=== PATIENT | female | born 1985 | race American Indian/Alaskan Native ===

== ENCOUNTER 2021-04-19 14:27 | Emergency (ER) | payer MEDICAID ==
[2021-04-19 15:14] VITALS: BP 117/77
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
--- NOTE | 2021-04-19 15:58 | XRay Report ---
CHEST 2 VIEWS INDICATION: chest pain. COMPARISON: 08/31/2020 FINDINGS: Support devices: None. Heart: Within normal limits. Lungs/pleura: No acute air space or interstitial disease. No pneumothorax. Additional findings: None. IMPRESSION: No acute findings. Signer Name: Kwan Glover Jr, MD Signed: 04/19/2021 3:53 PM Workstation Name: [id number]
--- NOTE | 2021-04-20 10:54 | Electrocardiograph Report ---
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
== END 2021-04-19 16:46 | disposition home or self-care (01) ==
LOC: ED 14:27
DX: R07.89 Other chest pain (principal); J45.909 Unspecified asthma, uncomplicated; F17.200 Nicotine dependence, unspecified, uncomplicated; Z98.890 Other specified postprocedural states; Z79.899 Other long term (current) drug therapy
CPT/HCPCS: 71046; 93005

== ENCOUNTER 2021-07-03 08:54 | Emergency (ER) | payer MEDICAID ==
[2021-07-03 09:09] VITALS: BP 120/75
--- NOTE | 2021-07-03 11:19 | Emergency Department Report ---
ED General Adult HPI - General Chief complaint: Nausea/Vomiting/Diarrhea Stated complaint: BODYACHES Time Seen by Provider: 07/03/21 11:06 Source: patient Mode of arrival: Ambulatory Limitations: No Limitations - History of Present Illness Initial comments: 35 year old female who reports history of seasonal allergies history presents to ED with multiple complaints. Patient states that for 1 week she has been having this rash which has been coming and going. She states that it looks like red lines that appear on her body that looks kind of like scratches. She states that is not pruritic or painful. She states that they appear in random areas on her body and then disappear. She denies any new soaps, new medications, lotions, any insect bites or any other new contacts. She also reports associated headache, generalized fatigue, lower back pain and mucus in the stools in the past week. She also complained that she has been having left uppe r abdominal pain but this has been going on for over 1 month. Has been intermittent. She denies any melena or hematochezia. She reports nausea but no vomiting. She denies any fever or chills. She denies any URI symptoms or cough. She denies any UTI symptoms or any abnormal vaginal symptoms. She states that she is concerned that she may have a parasite. She states that she did get the [employer] COVID-19 vaccine in April. She states that she is a social drinker, and she denies any illicit drug use. Complaint: Rash/upper abd pain/mucous in stool/MERCADO/Fatigue -: week(s) (1) - Related Data Previous Rx's Medication Instructions Recorded Last Taken Type Naproxen 500 mg PO BID #20 tablet 04/19/21 Unknown Rx Ondansetron [Zofran Odt] 4 mg PO Q8HR #15 tab.rapdis 07/03/21 Unknown Rx Allergies Allergy/AdvReac Type Severity Reaction Status Date / Time No Known Allergies Allergy Unverified 04/19/21 14:59 ED Review of Systems ROS: Stated complaint: BODYACHES Other details as noted in HPI Comment: All other systems reviewed and negative Constitutional: malaise. denies: chills, fever Eyes: denies: eye pain, eye discharge, vision change ENT: denies: ear pain, throat pain, dental pain, hearing loss, epistaxis, co ngestion Respiratory: no symptoms reported. denies: cough, orthopnea, shortness of breath, SOB with exertion, SOB at rest, wheezing Cardiovascular: denies: chest pain, palpitations, dyspnea on exertion, orthopnea, edema, syncope, paroxysmal nocturnal dyspnea Gastrointestinal: abdominal pain, nausea. denies: vomiting, diarrhea, constipation, hematemesis, melena, hematochezia Genitourinary: denies: urgency, dysuria, discharge, abnormal menses, dyspareunia Musculoskeletal: back pain. denies: joint swelling, arthralgia, myalgia Skin: denies: rash, lesions, change in color, change in hair/nails Neurological: headache. denies: weakness, numbness, paresthesias, confusion, abnormal gait Psychiatric: denies: anxiety, depression, auditory hallucinations, visual hallucinations, homicidal thoughts, suicidal thoughts Hematological/Lymphatic: denies: easy bleeding, easy bruising, swollen glands ED Past Medical Hx - Past Medical History Previous Medical History?: Yes Hx Asthma: Yes - Surgical History Past Surgical History?: Yes Additional Surgical History: ectopic - Social History Smoking Status: Current Every Day Smoker - Medications Home Medications: Home Medications Medication Instructions Recorded Confirmed Last Taken Type Naproxen 500 mg PO BID #20 tablet 04/19/21 Unknown Rx Ondansetron [Zofran Odt] 4 mg PO Q8HR #15 tab.rapdis 07/03/21 Unknown Rx ED Physical Exam - General Limitations: No Limitations General appearance: alert, in no apparent distress - Head Head exam: Present: atraumatic, normocephalic, normal inspection - Eye Eye exam: Present: normal appearance, PERRL, EOMI Pupils: Present: normal accommodation - ENT ENT exam: Present: normal exam, mucous membranes moist - Neck Neck exam: Present: normal inspection, full ROM - Respiratory Respiratory exam: Present: normal lung sounds bilaterally. Absent: respiratory distress, wheezes, rales, rhonchi - Cardiovascular Cardiovascular Exam: Present: regular rate, normal rhythm, normal heart sounds - GI/Abdominal GI/Abdominal exam: Present: soft. Absent: distended, tenderness, guarding, rebound - Neurological Exam Neurological exam: Present: alert, oriented X3, CN II-XII intact, normal gait - Psychiatric Psychiatric exam: Present: normal affect, normal mood - Skin Skin exam: Present: intact ED Course Vital Signs 07/03/21 07/03/21 09:08 13:11 Temperature 98.1 F Pulse Rate 62 88 Respiratory 20 16 Rate Blood Pressure 120/75 O2 Sat by Pulse 100 98 Oximetry ED Medical Decision Making - Lab Data Result diagrams: 07/03/21 11:27 07/03/21 11:27 - Medical Decision Making All labs reviewed and shows no emergent abnormalities. Patient currently resting comfortably. She is not in any acute distress. No apparent rash noted on physical exam. She is not toxic or ill-appearing and appears well-hydrated. She has a soft nontender abdomen. She is neurologically intact with a normal gait in the ER. Her vital signs are stable. Discussed lab results with patient. 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 Patient expressed understanding of instructions and agree with plan. Patient was stable at time of discharge Critical care attestation.: If time is entered above; I have spent that time in minutes in the direct care of this critically ill patient, excluding procedure time. ED Disposition Clinical Impression: Skin rash, Abnormal stools, Abdominal pain, chronic, left upper quadrant Disposition: DC-01 TO HOME OR SELFCARE Is pt being admited?: No Does the pt Need Aspirin: No Condition: Stable Instructions: Abdominal Pain, Adult, Ova and Parasite Stool Test, Rash, Adult, [id number] Additional Instructions: You can take Tylenol and/or ibuprofen to help with any pain. Take the Zofran as needed for nausea. Recommend that you follow-up with a GI specialist for outpatient stool studies and possible colonoscopy. You can also follow-up with the primary care doctor listed on your discharge instructions. Drink lots of fluids. Return to the ER if your symptoms changes or worsens in any way. Prescriptions: Ondansetron [Zofran Odt] 4 mg PO Q8HR #15 tab.rapdis Referrals: [facility] [Provider Group] - 3-5 Days IVANA PRETTY MD [Staff Physician] - 3-5 Days Forms: Work/School Release Form(ED) Time of Disposition: 12:53
[2021-07-03 11:57] LABS: Basophils # (Auto) 0.1 K/mm3 (0.0-0.1); Basophils % (Auto) 0.9 % (0.0-1.8); Eosinophils # (Auto) 0.6 K/mm3 (0.0-0.4); Eosinophils % (Auto) 8.3 % (0.0-4.3); Hematocrit 37.8 % (30.3-42.9); Hemoglobin 12.8 gm/dl (10.1-14.3); Lymphocytes # (Auto) 1.9 K/mm3 (1.2-5.4); Mean Corpuscular HGB Conc 34 % (30-34); Mean Corpuscular Volume 90 fl (79-97); Monocytes # (Auto) 0.4 K/mm3 (0.0-0.8); Monocytes % (Auto) 5.9 % (0.0-7.3); Platelet Count 279 K/mm3 (140-440)
[2021-07-03 12:20] LABS: Alanine Aminotransferase 6 units/L (7-56); Albumin 4.3 g/dL (3.9-5); Blood Urea Nitrogen 8 mg/dL (7-17); Calcium 9.2 mg/dL (8.4-10.2); Hemolysis Index 6
[2021-07-03 12:23] LABS: Bilirubin,Urine NEG (Negative); Blood,Urine LG (Negative); Color,Urine Yellow (Yellow); Mucus,Urine 3+ /HPF
[2021-07-03 12:28] LABS: BUN/Creatinine Ratio 13
== END 2021-07-03 13:11 | disposition home or self-care (01) ==
LOC: ED 08:54
DX: R21 Rash and other nonspecific skin eruption (principal); R10.10 Upper abdominal pain, unspecified; R19.5 Other fecal abnormalities; R10.12 Left upper quadrant pain; G89.29 Other chronic pain; J45.909 Unspecified asthma, uncomplicated
CPT/HCPCS: 36415; 80053; 81001; 83690; 83735; 84703; 85025; 99283